=== PATIENT | female | born 1965 | race Caucasian/White ===

== ENCOUNTER 2023-07-06 06:01 | Day surgery (SDC) | payer BC, SELFPAY ==
[2023-06-23 14:59] VITALS: BMI 31.8
[2023-07-06] VITALS (9 sets, daily range): BP systolic 81–122; BP diastolic 40–68; PULSE 65–98; RESP 10–16; TEMP 36.2; O2SAT 92–99; BMI 31.8
[2023-07-06] MEDS: ACETAMINOPHEN 325 MG TABLET 975 MG PO (07:06)
[2023-07-06] MEDS: LACTATED RINGERS 1,000 ML 42 ML IV (07:07)
--- NOTE | 2023-07-06 07:43 | P.HP_ITS ---
History of Present Illness History of Present Illness Date Patient Seen: 07/06/23 Time Patient Seen: 07:43 Date of Onset of Symptoms: 01/28/23 Chief complaint: left leg and hip pain Narrative: Sandhya is a 57 year old woman who presents today for a low back evaluation. Patient was referred by her Chiropractor for worsening low back pain. Symptoms included intermittent low back pain, bilateral lower extremity pain, and bilateral foot numbness. Treatment have included chiropractic, ice, and neuropathy treatments. Her pain is mostly on the left. [facility] Medical History (Updated 06/23/23 @ 15:06 by Gladys Alfonso RN) Thyroid disorder Insomnia Neuropathy HTN (hypertension) Diabetes Anxiety Depression Social History household members: spouse Smoking Status: Never smoker alcohol intake: never Meds Home Medications and Allergies Home Medications Medication Instructions Recorded Confirmed Type desvenlafaxine succinate 25 mg 50 mg PO DAILY 07/06/23 07/06/23 History tablet,extended release 24 hr duloxetine 60 mg capsule,delayed 60 mg PO DAILY 07/06/23 07/06/23 History release hydrochlorothiazide 25 mg tablet 25 mg PO DAILY 07/06/23 07/06/23 History levothyroxine 100 mcg tablet 100 mcg PO DAILY 07/06/23 07/06/23 History liothyronine 5 mcg tablet 5 mcg PO DAILY 07/06/23 07/06/23 History lisinopril 40 mg tablet 40 mg PO DAILY 07/06/23 07/06/23 History metformin 500 mg tablet,extended mg PO 07/06/23 History release 24 hr rosuvastatin 20 mg tablet 20 mg PO DAILY 07/06/23 07/06/23 History trazodone 50 mg tablet 25 - 50 mg PO ONCE PM 07/06/23 07/06/23 History Allergies Allergy/AdvReac Type Severity Reaction Status Date / Time Penicillins Allergy Verified 07/06/23 06:34 Sulfa (Sulfonamide Allergy Verified 07/06/23 06:34 Antibiotics) Exam Vital Signs (past 8 hours): - 07/06/23 06:50 Temperature 97.2 F L Pulse Rate 87 Respiratory Rate 16 Blood Pressure 122/68 Pulse Oximetry 98 Oxygen Delivery Method Room Air Oxygen Delivery Method Room Air Neuro Other: + straight leg raise to LLE, sensibility decreased to left L4, L5 dermatome, motor strength 4/5 in left TA/EHL. Assessment & Plan Assessment & Plan narrative: Ms. Delgado is here for f/u of her lumbar. She has left sided radiculopathy with pain, weakness and numbness not responding to over 3 months of conservative care chiropractor treatment, [facility] with persisting symptoms. Her MRI L-spine was independently reviewed today. She has L4-5 left lateral recess/foraminal stenosis correlating with her radiculopathy. I discussed treatment options including repeat injections, surgery with associated risks and benefits. Patient may benefit from decompression at L4-5 level with hemilaminectomy and lateral recess decompression. Patient's back pain is less severe than her back pain. Risks for surgery include but not limited to bleeding, infection, nerve/dura injury, need for additional procedure, persisting pain. Patient understands and would like to proceed with surgery. Patient is scheduled for left L4-5 hemilaminectomy.
[2023-07-06] MEDS: CEFAZOLIN 2 GM/100 ML PREMIX 100 ML IV (08:00)
--- NOTE | 2023-07-06 08:18 | SUR.OPER ---
Prone on spine table, head in foam head support, padded chest and pelvic supports, gel pad at knees, lower legs supported by pillows; nipples, genitalia and toes free of pressure, arms secured on foam padded arm boards at <90 degrees abduction. Tape over blanket at thigh secured to table.
[2023-07-06] MEDS: BUPIVACAINE 0.25% (PF) 30 ML, EPINEPHrine 0.15 MG INJ (08:22)
--- NOTE | 2023-07-06 08:57 | PM.OP.1 ---
Operative Date/Time/Diagnoses Date of procedure: 07/06/23 Time of procedure: 07:40 Pre-op diagnosis: 1. L4-5 spinal stenosis 2. Lumbar radiculopathy Post-op diagnosis: same Procedure & Clinicians Procedure: 1. L4-5 left hemilaminectomy 2. Utilization of microsurgical technique and operating microscope Same procedure as scheduled: Yes Indications: Patient has been having chronic back pain and worsening lumbar radiculopathy. Patient's MRI shows significant L4-5 central and lateral recess stenosis due to hypertrophied ligamentum flavum and epidural lipomatosis correlating with patient's symptoms. Patient failed multiple conservative management with worsening pain weakness and numbness in her lower extremity. Patient has been having difficulty performing activity of daily living. After discussing risks benefits of treatment options, patient elected proceed with surgery. Surgeon: Malcolm Corrales [employer] Teacher: Nicole Casanova Click Yes if Unassisted: No Anesthesia Type: General Operative Notes Closure Type: primary Specimen(s): none sent Estimated Blood Loss (mL): 5 Blood products transfused: none Procedure in detail: Patient was seen in the preoperative area. Risks and benefits of the surgery was discussed with the patient. Informed consent was obtained from the patient and placed in the chart. Surgical site was marked. Patient was taken to the operative room. General anesthesia was administered. Prophylactic antibiotic was given to the patient less than 30 min before the incision was made. Patient was placed into a prone position on the Cj table. Patient's back was then prepped and draped in the sterile fashion. Time-out was performed at this time. Using AP and lateral C-arm imaging the interval between L4-5 was identified and marked on patient's back. A 1 inch incision 1 in from midline was made on the left side. The fascia was incised in line with skin incision. Globus MARS retractors was placed inside the incision and docked onto the L4 lamina. Using microsurgical technique and operating microscope, a L4 gaurang laminectomy was performed using a Kerrison rongeur on the left side. Liagamentum flavum was resected at the site of the hemilaminectomy. Either side of the dura was exposed. Bilateral partial facetcomies was performed to further decompress the lateral recess. After the hemilaminectomy was completed, the area medial lateral superior and inferior to the area of the laminectomy was inspected and explored using a micro curette. No other impinging structure was identified. The wound was then irrigated with sterile normal saline. 40 mg Depo-Medrol was placed into the epidural space. The deep fascia was closed with 1-0 Vicryl. The subcutaneous tissue was closed with 2-0 Vicryl. The skin was closed with skin verito. Patient tolerated the procedure well. There were no complications. Patient was transferred recovery room in stable condition. The Operation could not have been safely performed without compromising the technical result or length of the procedure, without the assistance of a skilled surgical nurse practitioner. The surgical nurse practitioner was medically necessary for proper positioning, retraction and manipulation of instruments, proper exposure, surgical preparation, and manipulation of tissue. Complications: none Post-operative Condition: stable Disposition: PACU Plan for aftercare: discharge to home
--- NOTE | 2023-07-06 09:00 | DI.RAD.S_ITS ---
PROCEDURE: XR LUMBAR SPINE 2-3V INDICATIONS: L4-5 MICRODISCECTOMY TECHNIQUE: 2 views of the lumbar spine were acquired. COMPARISON: [facility] ANGELA Turner, XR LUMBAR SPINE FLEXION EXTENSION, 05/21/2023, 10:36. FINDINGS: Intraoperative guidance provided. Device at the left L4-L5 level. Small vertebral body osteophytes. Mild disc space height loss at L5-S1. IMPRESSION: Intraoperative guidance provided. Dictated by: Tony Tripp M.D. on 07/06/2023 at 12:18 Approved by: Tony Tripp M.D. on 07/06/2023 at 12:19
[2023-07-06] MEDS: OXYCODONE IR 5 MG TABLET PO ×2 (09:19→09:49)
[2023-07-06] MEDS: hydrOXYzine 50 MG/ML INJ 25 MG IM (09:20)
== END 2023-07-06 11:15 | disposition home or self-care (01) ==
PROVIDERS: PCP Nurse Practitioner Family; Referring Provider Nurse Practitioner Family; Visit Provider Orthopaedic Surgery Orthopaedic Surgery of the Spine
PROC: (CPT 63047; principal; 2023-07-06 07:45)
DX: M48.061 Spinal stenosis, lumbar region without neurogenic claudication (principal); M54.16 Radiculopathy, lumbar region; E88.2 Lipomatosis, not elsewhere classified; M46.06 Spinal enthesopathy, lumbar region
CPT/HCPCS: 63047; 72100; 76000; J0171; J0690; J1100; J2250; J2405; J2704; J2920; J3010; J3410